=== PATIENT | female | born 1995 | race Two or more races ===

== ENCOUNTER 2023-04-05 14:19 | Emergency (ER) | payer OTHER, SELFPAY ==
[2023-04-05 14:24] VITALS: BP 163/64
[2023-04-05 14:52] LABS: % Basophils 0.2 % (0-2); % Immature Granulocytes 0.4 % (0-0.5); % Neutrophils 84.4 % (42.2-75.2); Absolute Eosinophils 0.2 10^3/uL (0-0.7); Absolute Lymphocytes 0.9 10^3/uL (1.2-3.4); Absolute Monocytes 0.3 10^3/uL (0.1-0.6); Absolute Neutrophils 7.7 10^3/uL (1.4-6.5); Mean Corp Hgb Conc. 33.3 g/dL (33.0-37.0); Mean Corpuscular Hgb 26.7 pg (27.0-31.0); Mean Corpuscular Volume 80.2 fL (81.0-99.0); Mean Platelet Volume 9.6 fL (7.4-10.4); Nucleated Red Blood Cells % 0 %; Platelet Count 316 10^3/uL (130-400); Red Blood Cell Count 4.49 10^6/uL (4.20-5.40); Red Cell Dist. Width 13.1 % (11.5-14.5); White Blood Cell Count 9.1 10^3/uL (4.8-10.8)
[2023-04-05 15:05] LABS: HCG, Serum Qualitative Screen Negative
[2023-04-05 15:09] LABS: ALT (SGPT) 79 U/L (0-35); AST (SGOT) 78 U/L (14-36); Albumin 4.4 g/dl (3.5-5.0); Alkaline Phosphatase 94 U/L (38-126); Blood Urea Nitrogen 14 mg/dl (7-17); Calcium 9.6 mg/dl (8.4-10.2); Carbon Dioxide 27 mmol/L (22-30); Chloride 102 mmol/L (98-107); Glucose 97 mg/dl (70-99); Lipase 40 U/L (23-300); Potassium 4.3 mmol/L (3.5-5.1); Sodium 135 mmol/L (135-145); Total Bilirubin 0.7 mg/dl (0.2-1.3); Total Protein 7.3 g/dl (6.3-8.2); eGFR > 60.00
[2023-04-05 15:17] LABS: Troponin I < 0.012 ng/ml
--- NOTE | 2023-04-05 15:32 | ED.GENMED ---
History of Present Illness
General
Chief Complaint: Abdominal Pain
Time Seen by Provider: 04/05/23 15:32
Travel History
Have you had any contact with someone who has COVID-19?: No
Do you have any symptoms of coronavirus? Fever > 100 degrees, chills, cough, shortness of breath, sore throat, loss of taste or smell, muscle aches, or headache?: No
History of Present Illness
History of Present Illness:
HPI: Last night, the patient had palpitations and took Lopressor. She had some associated nausea and diffuse abdominal pain. The abdominal pain is intermittent but the back pain is constant. She has no dysuria or increased urinary frequency. She
has had no fevers.
EXAM:
GENERAL: Well appearing in very mild distress
HEENT: Moist oral mucosa
CARDIOVASCULAR: No murmurs, normal heart rate and rhythm, No chest wall tenderness, ZIO monitor device noted to send anterior chest wall
PULMONARY: No respiratory distress, breath sounds are clear and equal
ABDOMEN: Soft with no peritoneal signs, mild diffuse tenderness
NEUROLOGIC: Excellent strength all extremities, no coordination deficits
PSYCHIATRIC: Appropriate mental status, normal insight and judgement
EXTREMITIES: Nontender, no edema, moves all extremities equally
SKIN: No rash, no lesions
ED COURSE:
3:45 PM: I initially evaluated patient
NUMBER AND COMPLEXITY OF PROBLEMS ADDRESSED AT THE ENCOUNTER
� Chronic conditions affecting care: SVT
� Acute Exacerbation and/or Progression of Chronic Illness: Acute problem
� Differential Diagnosis includes: Biliary colic, cholecystitis, pancreatitis, ectopic , doubt UTI as she has no urinary symptoms, IBS
AMOUNT AND/OR COMPLEXITY OF DATA TO BE REVIEWED AND ANALYZED
� I performed an independent evaluation of and my interpretation is:
EKG:
CT: CT imaging shows no acute abnormality
X-rays:
Laboratory Studies: CBC relatively unremarkable other than borderline anemia, chemistries unremarkable with exception of slight transaminase elevation, troponin negative, hCG negative, lipase normal
Other:
� Review of other/old records: The patient was here in 2017 with SVT converted with adenosine
� Clinical information was obtained by an independent historian: I spoke to family at bedside
� Prescriptions/Medications Considered but not given:
� Further testing considered but not performed:
RISK OF COMPLICATIONS AND/OR MORBIDITY OR MORTALITY OF PATIENT MANAGEMENT
� Social determinants of health affecting care: Lives at home
� Discussion with other providers:
� Escalation of care including admission/observation vs risk of discharge considered: Blood work is relatively unremarkable but very mild transaminase elevation noted. hCG is negative. She does have diffuse abdominal
tenderness, will obtain CT imaging. After CT imaging was obtained, she felt worse. She was given Pepcid and Benadryl. On reassessment over an hour later, she feels significantly improved. She appears comfortable at time of discharge. Labs are
relatively unremarkable with exception of mild transaminase elevation.
Past History
Past History
ED Past Medical History: Arrthythmia (SVT), Other (Palpitations, irregular menses), Other (Anemia) and Other (Migraine headaches.)
ED Past Surgical History: Cardiac (SVT ablation 2018)
Social History
Tobacco: Non-smoker
Alcohol: None
Drug: None
Personal: Single
Living: with family
Employment: Student
Family History
Family History: Other (Noncontributory)
Phy Exam
Physical Exam
Physical Exam:
See HPI
Course
Orders/Labs/Results
Orders:
Orders
04/05/23 14:28
ECG [Electrocardiogram (*1)] Urgent
Reason for Study: Palpitations
EKG- Treatment ONCE
04/05/23 14:29
Test Result ONCE
04/05/23 14:36
Complete Blood Count/With Diff Urgent
Comprehensive Metabolic Panel Urgent
HCG, Serum Qualitative Screen Urgent
Lipase Urgent
Troponin I Urgent
04/05/23 15:48
0.9% Sodium Chloride 1000 ml [Nss] 1,000 ml IV BOLUS
Ondansetron Injectable [Zofran] 4 mg IV NOW STA
04/05/23 15:50
CT Abd/pelvis W Iv Cont Urgent
Comment:
Reason For Exam: diffuse abd pain back pain nausea
Ketorolac [Toradol] 15 mg IV NOW STA
04/05/23 17:23
Diphenhydramine [Benadryl] 25 mg IV NOW STA
Famotidine [Pepcid] 20 mg IV NOW STA
Abnormal Lab Results
04/05/23
14:36
Hct 36.0 L %
(37.0-47.0)
MCV 80.2 L fL
(81.0-99.0)
MCH 26.7 L pg
(27.0-31.0)
Absolute Neuts (auto) 7.7 H 10^3/uL
(1.4-6.5)
Absolute Lymphs (auto) 0.9 L 10^3/uL
(1.2-3.4)
Neutrophils % 84.4 H %
(42.2-75.2)
Lymphocytes % 10.0 L %
(20.5-51.1)
AST 78 H U/L
(14-36)
ALT 79 H U/L
(0-35)
04/05/23 14:36
04/05/23 14:36
Vital Signs
Initial and Last Documented VS:
Initial Vital Signs
Temp Pulse Resp BP Pulse Ox
98.1 F 87 18 163/64 100
04/05/23 14:24 04/05/23 14:24 04/05/23 14:24 04/05/23 14:24 04/05/23 14:24
Last Documented Vital Signs
Temp Pulse Resp BP Pulse Ox
98.1 F 104 25 107/92 100
04/05/23 14:24 04/05/23 19:00 04/05/23 19:00 04/05/23 19:00 04/05/23 17:20
*Critical Care Note
Total Time (30-74mins, 75-104mins- exclusive of procedures): Not Applicable
ED Attending Note
-
Portions of this chart may have been created with voice recognition software.� Occasional wrong word or��sound alike� substitutions may have occurred due to the inherent limitations of voice recognition software.
Discharge Plan
Departure
Patient Disposition: Home (Routine Discharge)
Date of Disposition: 04/05/23
Time of Disposition: 19:12
Patient with high blood pressure during this ER visit?: Yes
Discharge Problem:
Abdominal pain
Instructions: Abdominal Pain
Prescriptions:
No Action
atenolol 25 MG tablet
25 mg PO DAILY
Patient Comments:
Pt to start taking tomorrow per father.
levonorgestrel-ethinyl estrad [Chateal (28)] 1 EACH tablet
1 ea PO DAILY
ibuprofen 600 MG tablet
600 mg PO QIDPRN PRN (Reason: pain) Qty: 30 0RF
prochlorperazine maleate 10 MG tablet
10 mg PO Q6HPRN PRN (Reason: headache, nausea) Qty: 14 0RF
Referrals:
NONE,* [Family Provider] -
Melissa Baltazar MD [Active] - Follow up in 2-3 days
Activity Restrictions/Additional Instructions:
Continue Nexium. Consider intermittent use of ibuprofen. We did give you Pepcid as well as Benadryl tonight after the CAT scan. The EKG showed sinus rhythm, ventricular rate of 88, nonspecific ST abnormality, there is no significant change in
comparison to 08/12/2017. I did notify GI and they should be calling you for follow-up.
Interventions
Interventions:
*Risk Screen - Suicide Last Done: 04/05/23 14:24
*General Assessment Last Done: 04/05/23 14:24
*Neglect/Abuse Screening Last Done: 04/05/23 14:24
*ED COVID-19 Vaccine History Last Done: 04/05/23 16:44
[facility]odfc[facility]ug[facility] Assessment Last Done: 04/05/23 19:12
[2023-04-05] MEDS: NSS 1000 IV (16:37)
[2023-04-05] MEDS: ZOFRAN 4 MG IV (16:38)
[2023-04-05] MEDS: TORADOL 15 MG IV (16:38)
[2023-04-05 16:43] VITALS: BMI 30.7
[2023-04-05] MEDS: BENADRYL 25 MG IV (17:32)
[2023-04-05] MEDS: PEPCID 20 MG IV (17:32)
[2023-04-05 18:00] VITALS: BP 107/66
[2023-04-05 19:00] VITALS: BP 107/92
== END 2023-04-05 19:49 | disposition home or self-care (01) ==
LOC: EMR 14:19
PROVIDERS: Emergency Medicine; EMERGENCY PHYSICIAN Emergency Medicine
DX: R10.9 Unspecified abdominal pain (principal); R11.0 Nausea; R00.2 Palpitations
CPT/HCPCS: 99284; 74177; 80053; 83690; 84484; 84703; 85025; 93005; Q9967

== ENCOUNTER 2024-01-06 22:18 | Emergency (ER) | payer OTHER, SELFPAY ==
[2024-01-06 22:27] VITALS: BP 171/126
[2024-01-07 00:05] LABS: % Basophils 0.4 % (0-2); % Eosinophils 2.1 % (0-6); % Immature Granulocytes 0.8 % (0-0.5); % Lymphocytes 21.1 % (20.5-51.1); % Monocytes 4.4 % (1.7-9.3); % Neutrophils 71.2 % (42.2-75.2); Absolute Basophils 0.1 10^3/uL (0-0.2); Absolute Eosinophils 0.3 10^3/uL (0-0.7); Absolute Immature Granulocytes 0.1 10^3/uL (0-0.05); Absolute Lymphocytes 2.8 10^3/uL (1.2-3.4); Absolute Monocytes 0.6 10^3/uL (0.1-0.6); Absolute Neutrophils 9.3 10^3/uL (1.4-6.5); Hematocrit 31.5 % (37.0-47.0); Hemoglobin 9.8 g/dL (12.0-16.0); Mean Corp Hgb Conc. 31.1 g/dL (33.0-37.0); Mean Corpuscular Hgb 24.5 pg (27.0-31.0); Mean Corpuscular Volume 78.8 fL (81.0-99.0); Mean Platelet Volume 9.6 fL (7.4-10.4); Nucleated Red Blood Cells % 0 %; Platelet Count 340 10^3/uL (130-400); Red Cell Dist. Width 14.2 % (11.5-14.5); White Blood Cell Count 13.1 10^3/uL (4.8-10.8)
[2024-01-07] MEDS: NSS 1000 IV (00:05)
[2024-01-07 00:08] VITALS: BP 126/71
[2024-01-07 00:22] LABS: Blood Urea Nitrogen 15 mg/dl (7-17); Calcium 9.1 mg/dl (8.4-10.2); Carbon Dioxide 22 mmol/L (22-30); Chloride 102 mmol/L (98-107); Glucose 110 mg/dl (70-99); Sodium 138 mmol/L (135-145); eGFR > 60.00
[2024-01-07 00:28] LABS: Troponin I < 0.012 ng/ml
[2024-01-07 00:30] VITALS: BP 131/76
--- NOTE | 2024-01-07 00:30 | ED.GENMED ---
History of Present Illness
<Lionel Laura MD - Last Filed: 01/07/24 00:32>
General
Chief Complaint: Heart Rate Problem
Source: patient and spouse
Exam Limitations: none
Time Seen by Provider: 01/06/24 22:54
History of Present Illness
History of Present Illness:
28-year-old female complaining of heart racing. Pounding. Started yesterday. History of SVT and inappropriate sinus tachycardia. At times runs heart rate in the low 100s. Heart rate went up to 190 earlier yesterday. Some intermittent sharp
chest pain with this. No true pleuritic pain. No back pain no abdominal pain no vaginal bleeding. Patient is 5-1/2 weeks .
Past History
<Lionel Laura MD - Last Filed: 01/07/24 00:32>
Past History
ED Past Medical History: Arrthythmia (SVT), Other (Palpitations, irregular menses), Other (Anemia) and Other (Migraine headaches.)
ED Past Surgical History: Cardiac (SVT ablation 2018)
Social History
Tobacco: Non-smoker
Alcohol: None
Drug: None
Personal: Single
Living: with family
Employment: Student
Family History
Family History: Other (Noncontributory)
Review of Systems
<Lionel Laura MD - Last Filed: 01/07/24 00:32>
Review of Systems
All Other Systems: Not applicable
Constitutional: Denies fever or chills
ABD/GI: Denies abdominal pain
Phy Exam
<Lionel Laura MD - Last Filed: 01/07/24 00:32>
Physical Exam
Physical Exam:
GENERAL: Alert and oriented in no apparent distress
EYE: Orbits normal.
NECK: Supple, no thyroid palpable
ENT: Pharynx without erythema
CARDIAC: Tachycardic and regular no murmur.
LUNGS: Clear breath sounds,normal
ABDOMEN: Soft, without focal tenderness or distention
NEUROLOGICAL: Alert and oriented , grossly non-focal
SKIN: Warm and dry, no rash or lesion, no discoloration, skin intact.
MUSCULOSKELETAL: No edema,no deformity.Good color
PSYCH: Normal and appropriate interaction.
Course
<Lionel Laura MD - Last Filed: 01/07/24 00:32>
Orders/Labs/Results
Orders:
Orders
01/06/24 22:19
EKG [Electrocardiogram (*1)] Urgent
Reason for Study: Chest Pain
EKG- Treatment ONCE
01/06/24 23:15
IV Insert/Care/Rem.- Treatment PRN
0.9% Sodium Chloride 1000 ml [Nss] 1,000 ml IV BOLUS
01/06/24 23:17
Cardiac Monitoring- Treatment ONCE
01/06/24 23:53
Basic Metabolic Panel Urgent
Beta HCG Quantitative Urgent
Is this a screen?: No
Complete Blood Count/With Diff Urgent
TSH Reflex To Free T4 Urgent
Troponin I Urgent
01/07/24 00:00
US Periph Venous LOWER Ext Harish Urgent
Reason For Exam: /tachycardia/chest pain
US W Transvaginal Urgent
Reason For Exam: Tachycardia/lower abdominal pain
01/07/24 00:32
D-Dimer Urgent
Abnormal Lab Results
01/06/24
23:53
WBC 13.1 H 10^3/uL
(4.8-10.8)
RBC 4.00 L 10^6/uL
(4.20-5.40)
Hgb 9.8 L g/dL
(12.0-16.0)
Hct 31.5 L %
(37.0-47.0)
MCV 78.8 L fL
(81.0-99.0)
MCH 24.5 L pg
(27.0-31.0)
MCHC 31.1 L g/dL
(33.0-37.0)
Abs Immat Gran (auto) 0.1 H 10^3/uL
(0-0.05)
Absolute Neuts (auto) 9.3 H 10^3/uL
(1.4-6.5)
Immature Gran % 0.8 H %
(0-0.5)
Glucose 110 H mg/dl
(70-99)
01/06/24 23:53
01/06/24 23:53
Vital Signs
Initial and Last Documented VS:
Initial Vital Signs
Temp Pulse Resp BP Pulse Ox
98.2 F 130 16 171/126 98
01/06/24 22:27 01/06/24 22:27 01/06/24 22:27 01/06/24 22:27 01/06/24 22:27
Last Documented Vital Signs
Temp Pulse Resp BP Pulse Ox
98.2 F 101 24 122/72 100
01/06/24 22:27 01/07/24 01:30 01/07/24 01:30 01/07/24 01:30 01/07/24 01:30
<Nimisha Desai DO - Last Filed: 01/07/24 04:29>
Orders/Labs/Results
Orders:
Orders
01/06/24 22:19
EKG [Electrocardiogram (*1)] Urgent
Reason for Study: Chest Pain
EKG- Treatment ONCE
01/06/24 23:15
IV Insert/Care/Rem.- Treatment PRN
0.9% Sodium Chloride 1000 ml [Nss] 1,000 ml IV BOLUS
01/06/24 23:17
Cardiac Monitoring- Treatment ONCE
01/06/24 23:53
Basic Metabolic Panel Urgent
Beta HCG Quantitative Urgent
Is this a screen?: No
Complete Blood Count/With Diff Urgent
TSH Reflex To Free T4 Urgent
Troponin I Urgent
01/07/24 00:00
US Periph Venous LOWER Ext Harish Urgent
Reason For Exam: /tachycardia/chest pain
US W Transvaginal Urgent
Reason For Exam: Tachycardia/lower abdominal pain
01/07/24 00:32
D-Dimer Urgent
Abnormal Lab Results
01/06/24
23:53
WBC 13.1 H 10^3/uL
(4.8-10.8)
RBC 4.00 L 10^6/uL
(4.20-5.40)
Hgb 9.8 L g/dL
(12.0-16.0)
Hct 31.5 L %
(37.0-47.0)
MCV 78.8 L fL
(81.0-99.0)
MCH 24.5 L pg
(27.0-31.0)
MCHC 31.1 L g/dL
(33.0-37.0)
Abs Immat Gran (auto) 0.1 H 10^3/uL
(0-0.05)
Absolute Neuts (auto) 9.3 H 10^3/uL
(1.4-6.5)
Immature Gran % 0.8 H %
(0-0.5)
Glucose 110 H mg/dl
(70-99)
01/06/24 23:53
01/06/24 23:53
Vital Signs
Initial and Last Documented VS:
Initial Vital Signs
Temp Pulse Resp BP Pulse Ox
98.2 F 130 16 171/126 98
01/06/24 22:27 01/06/24 22:27 01/06/24 22:27 01/06/24 22:27 01/06/24 22:27
Last Documented Vital Signs
Temp Pulse Resp BP Pulse Ox
98.2 F 101 24 122/72 100
01/06/24 22:27 01/07/24 01:30 01/07/24 01:30 01/07/24 01:30 01/07/24 01:30
<Lionel Laura MD - Last Filed: 01/07/24 00:32>
MDM/Problems Addressed
Differential Diagnosis Includes:
Most suspicious this is just a response to her inappropriate sinus tachycardia. Patient is 5 and half weeks . She has no leg pain no leg no leg swelling. Relatively low risk for pulmonary emboli given the early . Has a history
of tachycardic issues in the past. Will do leg ultrasounds ultrasound of the fetus D-dimer.
<Lionel Laura MD - Last Filed: 01/07/24 00:32>
Data Reviewed
Review of Other/Old Records Reveals: Labs and Testing
<Nimisha Desai DO - Last Filed: 01/07/24 04:29>
*Radiology
Radiology exam reviewed: radiology read reviewed
*Pulse Oximetry
Patient hypoxic: no
*Critical Care Note
Total Time (30-74mins, 75-104mins- exclusive of procedures): Not Applicable
<Nimisha Desai DO - Last Filed: 01/07/24 04:29>
Update Note
Update Note:
Patient continues to feel well. No further tachycardia.
She remains hemodynamically stable.
Continues to deny abdominal pain.
Venous Doppler bilateral lower extremities negative for DVT.
Pelvic ultrasound shows small cystic structure within the endometrium which may represent early IUP but no definitive pole. hCG is quite low at 1800, consistent with a very early . It is reassuring that she has had no abdominal
pain, nothing to suggest ectopic .
Labs show mild anemia with hemoglobin of 9.8. Patient has history of iron deficiency anemia, currently maintained on oral iron.
She does have a tack maker and plans to follow-up promptly.
Will also follow-up with her tomato paste maker, Dr. Rock.
ED Attending Note
<Lionel Laura MD - Last Filed: 01/07/24 00:32>
-
Portions of this chart may have been created with voice recognition software.� Occasional wrong word or��sound alike� substitutions may have occurred due to the inherent limitations of voice recognition software.
Discharge Plan
Departure
Patient Disposition: Home (Routine Discharge)
Date of Disposition: 01/07/24
Time of Disposition: 04:23
Patient with high blood pressure during this ER visit?: No
Condition: Good
Discharge Problem:
Tachycardia/chest pain, Early
Instructions: Tachycardia, Chest pain
Prescriptions:
No Action
atenolol 25 MG tablet
25 mg PO DAILY
Patient Comments:
Pt to start taking tomorrow per father.
levonorgestrel-ethinyl estrad [Chateal (28)] 1 EACH tablet
1 ea PO DAILY
ibuprofen 600 MG tablet
600 mg PO QIDPRN PRN (Reason: pain) Qty: 30 0RF
prochlorperazine maleate 10 MG tablet
10 mg PO Q6HPRN PRN (Reason: headache, nausea) Qty: 14 0RF
Referrals:
NONE,* [Family Provider] -
Activity Restrictions/Additional Instructions:
Call your tomato paste maker tomorrow for close follow-up
Also call your glass loading equipment tender for close follow-up
Return with worsening symptoms including worsening chest pain shortness of breath fever cough or any other infectious symptoms
Interventions
Interventions:
*Risk Screen - Suicide Last Done: 01/06/24 22:27
*General Assessment Last Done: 01/06/24 22:27
*Neglect/Abuse Screening Last Done: 01/06/24 22:27
ED- Fall Risk Assessment Last Done: 01/06/24 23:22
*ED COVID-19 Vaccine History Last Done: 01/06/24 22:27
ED- Cardiac Assessment Last Done: 01/06/24 23:22
ED- Pulmonary Assessment Last Done: 01/06/24 23:22
Discharge Date and Time
Print Language: WELSH
[2024-01-07 00:46] VITALS: BMI 33.2
[2024-01-07 00:48] LABS: TSH Reflex To Free T4 2.89 uIU/ml (0.47-4.68)
[2024-01-07 00:55] LABS: D-Dimer 0.32 ug/mlFEU (0.00-0.50)
[2024-01-07 01:00] VITALS: BP 125/68
[2024-01-07 01:30] VITALS: BP 122/72
== END 2024-01-07 04:42 | disposition home or self-care (01) ==
LOC: EMR 22:18
PROVIDERS: EMERGENCY PHYSICIAN Emergency Medicine
DX: O99.891 Other specified diseases and conditions complicating pregnancy (principal); R00.0 Tachycardia, unspecified; R07.89 Other chest pain; Z3A.01 Less than 8 weeks gestation of pregnancy; Z86.79 Personal history of other diseases of the circulatory system
CPT/HCPCS: 99283; 96360; 96361; 76801; 76817; 80048; 84443; 84484; 84702; 85025; 85379; 93005; 93970

== ENCOUNTER 2024-01-26 17:14 | Emergency (ER) | payer BC, SELFPAY ==
[2024-01-26 17:16] VITALS: BP 124/81
[2024-01-26 17:44] LABS: % Basophils 0.3 % (0-2); % Eosinophils 2.1 % (0-6); % Immature Granulocytes 0.6 % (0-0.5); % Lymphocytes 18.7 % (20.5-51.1); % Monocytes 4.5 % (1.7-9.3); % Neutrophils 73.8 % (42.2-75.2); Absolute Eosinophils 0.2 10^3/uL (0-0.7); Absolute Immature Granulocytes 0.1 10^3/uL (0-0.05); Absolute Lymphocytes 2.1 10^3/uL (1.2-3.4); Absolute Monocytes 0.5 10^3/uL (0.1-0.6); Absolute Neutrophils 8.4 10^3/uL (1.4-6.5); Hematocrit 34.6 % (37.0-47.0); Mean Corp Hgb Conc. 31.8 g/dL (33.0-37.0); Mean Corpuscular Hgb 25.2 pg (27.0-31.0); Mean Corpuscular Volume 79.4 fL (81.0-99.0); Mean Platelet Volume 9.7 fL (7.4-10.4); Nucleated Red Blood Cells % 0 %; Platelet Count 333 10^3/uL (130-400); Red Blood Cell Count 4.36 10^6/uL (4.20-5.40); Red Cell Dist. Width 15.3 % (11.5-14.5); White Blood Cell Count 11.3 10^3/uL (4.8-10.8)
[2024-01-26 18:01] LABS: ALT (SGPT) 18 U/L (0-35); AST (SGOT) 19 U/L (14-36); Albumin 4.3 g/dl (3.5-5.0); Alkaline Phosphatase 81 U/L (38-126); Calcium 9.5 mg/dl (8.4-10.2); Carbon Dioxide 24 mmol/L (22-30); Chloride 102 mmol/L (98-107); Glucose 110 mg/dl (70-99); Potassium 4.4 mmol/L (3.5-5.1); Sodium 136 mmol/L (135-145); Total Bilirubin 0.3 mg/dl (0.2-1.3); eGFR > 60.00
--- NOTE | 2024-01-26 18:06 | ED.GENMED ---
History of Present Illness
<Cuauhtemoc Gill PA-C - Last Filed: 01/26/24 18:07>
General
Chief Complaint: Problems
Time Seen by Provider: 01/26/24 17:32
History of Present Illness
History of Present Illness:
28-year-old female presents to the emergency department for evaluation of vaginal bleeding. currently about 8 weeks gestational age. Reports feeling 1 pad for bleeding gradually improved. Only trivial bleeding noted at this time. No
history of bleeding disorder. Does report pelvic cramping currently as well.
<Chandler Craig Jr., PA-C - Last Filed: 01/26/24 19:34>
General
Source: patient
Exam Limitations: none
Nursing documentation reviewed up to this point in time: agreed with
Past History
<Cuauhtemoc Gill PA-C - Last Filed: 01/26/24 18:07>
Past History
ED Past Medical History: Arrthythmia (SVT), Other (Palpitations, irregular menses), Other (Anemia) and Other (Migraine headaches.)
ED Past Surgical History: Cardiac (SVT ablation 2018)
Social History
Tobacco: Non-smoker
Alcohol: None
Drug: None
Personal: Single
Living: with family
Employment: Student
Family History
Family History: Other (Noncontributory)
Review of Systems
<Cuauhtemoc Gill PA-C - Last Filed: 01/26/24 18:07>
Review of Systems
Allergies reviewed?: Yes
All Other Systems: ROS reviewed and negative except as documented in HPI and ROS
Phy Exam
<KAROLYN Blackman Last Filed: 01/26/24 18:07>
Physical Exam
Physical Exam:
GEN: Well appearing, NAD, WDWN
HEENT: Oral mucosa moist, no scleral icterus
Cardiac: Regular rate
Lung: No respiratory distress, no tachypnea
MSK: No gross deformity or injuries
Skin: Good color, no pallor or jaundice, no rashes
Neuro: AO x3, moves all extremities freely
Psych: Calm, cooperative
Course
<Cuauhtemoc Gill PA-C - Last Filed: 01/26/24 18:07>
Orders/Labs/Results
Orders:
Orders
01/26/24 17:25
US W Transvaginal Urgent
Comment:
Reason For Exam: 1st trimester bleeding
01/26/24 17:29
Type And Crossmatch [Type+Screen] Urgent
Beta HCG Quantitative Urgent
Is this a screen?: No
Comment: patient known to be
Complete Blood Count/With Diff Urgent
Comprehensive Metabolic Panel Urgent
01/26/24 17:54
ABO2 Urgent
BBK Wristband Number:
Associate notified that ABO2 has been ordered: [id number]
Date: 01/26/24
Time: 17:50
Shuttle [address] Vehicle Operator ID: [id number]
Abnormal Lab Results
01/26/24
17:29
WBC 11.3 H 10^3/uL
(4.8-10.8)
Hgb 11.0 L g/dL
(12.0-16.0)
Hct 34.6 L %
(37.0-47.0)
MCV 79.4 L fL
(81.0-99.0)
MCH 25.2 L pg
(27.0-31.0)
MCHC 31.8 L g/dL
(33.0-37.0)
RDW 15.3 H %
(11.5-14.5)
Abs Immat Gran (auto) 0.1 H 10^3/uL
(0-0.05)
Absolute Neuts (auto) 8.4 H 10^3/uL
(1.4-6.5)
Immature Gran % 0.6 H %
(0-0.5)
Lymphocytes % 18.7 L %
(20.5-51.1)
Glucose 110 H mg/dl
(70-99)
01/26/24 17:29
01/26/24 17:29
Vital Signs
Initial and Last Documented VS:
Initial Vital Signs
Temp Pulse Resp BP Pulse Ox
98.6 F 98 18 124/81 100
01/26/24 17:16 01/26/24 17:16 01/26/24 17:16 01/26/24 17:16 01/26/24 17:16
Last Documented Vital Signs
Temp Pulse Resp BP Pulse Ox
98.6 F 98 18 124/81 100
01/26/24 17:16 01/26/24 17:16 01/26/24 17:16 01/26/24 17:16 01/26/24 17:16
<Chandler Craig Jr., PA-C - Last Filed: 01/26/24 19:34>
Orders/Labs/Results
Orders:
Orders
01/26/24 17:25
US W Transvaginal Urgent
Comment:
Reason For Exam: 1st trimester bleeding
01/26/24 17:29
Type And Crossmatch [Type+Screen] Urgent
Beta HCG Quantitative Urgent
Is this a screen?: No
Comment: patient known to be
Complete Blood Count/With Diff Urgent
Comprehensive Metabolic Panel Urgent
01/26/24 17:54
ABO2 Urgent
BBK Wristband Number:
Associate notified that ABO2 has been ordered: [id number]
Date: 01/26/24
Time: 17:50
Shuttle [address] Vehicle Operator ID: [id number]
Abnormal Lab Results
01/26/24
17:29
WBC 11.3 H 10^3/uL
(4.8-10.8)
Hgb 11.0 L g/dL
(12.0-16.0)
Hct 34.6 L %
(37.0-47.0)
MCV 79.4 L fL
(81.0-99.0)
MCH 25.2 L pg
(27.0-31.0)
MCHC 31.8 L g/dL
(33.0-37.0)
RDW 15.3 H %
(11.5-14.5)
Abs Immat Gran (auto) 0.1 H 10^3/uL
(0-0.05)
Absolute Neuts (auto) 8.4 H 10^3/uL
(1.4-6.5)
Immature Gran % 0.6 H %
(0-0.5)
Lymphocytes % 18.7 L %
(20.5-51.1)
Glucose 110 H mg/dl
(70-99)
01/26/24 17:29
01/26/24 17:29
Vital Signs
Initial and Last Documented VS:
Initial Vital Signs
Temp Pulse Resp BP Pulse Ox
98.6 F 98 18 124/81 100
01/26/24 17:16 01/26/24 17:16 01/26/24 17:16 01/26/24 17:16 01/26/24 17:16
Last Documented Vital Signs
Temp Pulse Resp BP Pulse Ox
98.6 F 98 18 124/81 100
01/26/24 17:16 01/26/24 17:16 01/26/24 17:16 01/26/24 17:16 01/26/24 17:16
Information
Weeks gestation: Weeks:
Location: Location:
<Chandler Craig Jr., PA-C - Last Filed: 01/26/24 19:34>
*Critical Care Note
Total Time (30-74mins, 75-104mins- exclusive of procedures): Not Applicable
<Chandler Craig Jr., PA-C - Last Filed: 01/26/24 19:34>
Update Note
Update Note:
1915: Ed Rafa PARR patient's ultrasound results showing intrauterine showing small subchorionic hemorrhage. This was discussed with the patient she will follow-up closely tomorrow with her machine fastener. Otherwise stable for discharge
return precautions given.
ED Attending Note
<Cuauhtemoc Gill PA-C - Last Filed: 01/26/24 18:07>
-
Portions of this chart may have been created with voice recognition software.� Occasional wrong word or��sound alike� substitutions may have occurred due to the inherent limitations of voice recognition software.
Discharge Plan
Departure
Patient Disposition: Home (Routine Discharge)
Date of Disposition: 01/26/24
Time of Disposition: 19:32
Patient with high blood pressure during this ER visit?: No
Condition: Good
Covid-19: Not Applicable
Discharge Problem:
Subchorionic hemorrhage in first trimester
Instructions: Subchorionic Bleeding
Prescriptions:
No Action
atenolol 25 MG tablet
25 mg PO DAILY
Patient Comments:
Pt to start taking tomorrow per father.
levonorgestrel-ethinyl estrad [Chateal (28)] 1 EACH tablet
1 ea PO DAILY
ibuprofen 600 MG tablet
600 mg PO QIDPRN PRN (Reason: pain) Qty: 30 0RF
prochlorperazine maleate 10 MG tablet
10 mg PO Q6HPRN PRN (Reason: headache, nausea) Qty: 14 0RF
Referrals:
NONE,* [Family Provider] -
Activity Restrictions/Additional Instructions:
You came to the emergency department today with concerns of bleeding in first trimester. Please follow closely with your machine fastener tomorrow. It appears that you have a subchorionic hemorrhage. Please follow all directions in this regard.
Return to the emergency department any worsening, new or concerning symptoms.
Interventions
Interventions:
*Risk Screen - Suicide Last Done: 01/26/24 17:16
*General Assessment Last Done: 01/26/24 17:16
*Neglect/Abuse Screening Last Done: 01/26/24 17:16
*ED COVID-19 Vaccine History Last Done: 01/26/24 17:16
ED-Female Genitourinary Assessment Last Done: 01/26/24 17:50
Discharge Date and Time
Print Language: DJIBOUTIAN
[2024-01-26 18:09] LABS: Blood Urea Nitrogen 11 mg/dl (7-17)
[2024-01-26 19:44] VITALS: BP 116/78
== END 2024-01-26 19:47 | disposition home or self-care (01) ==
LOC: EMR 17:14
PROVIDERS: EMERGENCY PHYSICIAN Emergency Medicine
DX: O20.8 Other hemorrhage in early pregnancy (principal); Z3A.08 8 weeks gestation of pregnancy
CPT/HCPCS: 99284; 76801; 76817; 80053; 84702; 85025; 86850; 86870; 86900; 86901

== ENCOUNTER → 2024-03-31 08:09 | Outpatient (REF) | payer BC, SELFPAY | LOC: PNTC 08:09 | PROVIDERS: ATTENDING PHYSICIAN Obstetrics & Gynecology | DX: O10.019 Pre-existing essential hypertension complicating pregnancy, unspecified trimester (principal); I47.19 Other supraventricular tachycardia | CPT/HCPCS: 76805 ==

== ENCOUNTER → 2024-04-28 13:21 | Outpatient (REF) | payer BC, SELFPAY | LOC: PNTC 13:21 | PROVIDERS: ATTENDING PHYSICIAN Obstetrics & Gynecology | DX: I47.10 Supraventricular tachycardia, unspecified (principal); O99.210 Obesity complicating pregnancy, unspecified trimester; O13.9 Gestational [pregnancy-induced] hypertension without significant proteinuria, unspecified trimester | CPT/HCPCS: 76811; 76817 ==

== ENCOUNTER → 2024-05-23 13:15 | Outpatient (REF) | payer BC, SELFPAY | LOC: PNTC 13:15 | PROVIDERS: ATTENDING PHYSICIAN Obstetrics & Gynecology | DX: O99.320 Drug use complicating pregnancy, unspecified trimester (principal); E28.2 Polycystic ovarian syndrome; O99.210 Obesity complicating pregnancy, unspecified trimester; O10.019 Pre-existing essential hypertension complicating pregnancy, unspecified trimester | CPT/HCPCS: 76816 ==

== ENCOUNTER 2024-06-05 18:29 | Observation (INO) | payer BC, SELFPAY ==
[2024-06-05 14:54] VITALS: BMI 34.5
[2024-06-05 14:58] VITALS: BP 145/96
--- NOTE | 2024-06-05 15:20 | ED.GENMED ---
History of Present Illness
General
Chief Complaint: Problems
Source: patient and spouse
Exam Limitations: none
Time Seen by Provider: 06/05/24 15:20
Nursing documentation reviewed up to this point in time: agreed with
History of Present Illness
History of Present Illness:
28-year-old female presents emergency room due to right aggressive abdominal pain rating to her back, shortness of breath for a week. OB was contacted, who requested BP checked and a call back. Patient denies chest pain.
Past History
Past History
ED Past Medical History: Arrthythmia (SVT), Other (Palpitations, irregular menses), Other (Anemia) and Other (Migraine headaches.)
ED Past Surgical History: Cardiac (SVT ablation 2018)
Social History
Tobacco: Non-smoker
Alcohol: None
Drug: None
Personal: Single
Living: with family
Employment: Student
Family History
Family History: Other (Noncontributory)
Review of Systems
Review of Systems
Allergies reviewed?: Yes
All Other Systems: Not applicable
Constitutional: Reports no symptoms
EENT: Reports no symptoms
Respiratory: Reports no symptoms
Cardiac: Reports no symptoms
ABD/GI: Reports abdominal pain
: Reports no symptoms
Musculoskeletal: Reports no symptoms
Skin: Reports no symptoms
Neurological: Reports no symptoms
Endocrine: Reports no symptoms
Hematologic/Lymphatic: Reports no symptoms
Psychiatric: Reports no symptoms
Phy Exam
Physical Exam
Physical Exam:
Physical Exam
General: no apparent distress, not acutely ill
Neck: supple. no meningeal signs. normal posterior pharynx
Heart: s1/s2 regular rate and rhythm, no murmur. equal radial
pulses.
HEENT: Pupils equal round reactive to light, EOMI
Lungs: no acute respiratory distress. clear bilaterally
Abdomen: normal bowel sounds. not tender. no CVAT
Neuro: alert and oriented. no focal neurological deficits cranial nerves II through XII intact
Skin: no rash
Psychiatric: well kept. interactive and cooperative
Extremities: no edema. no calf tenderness. negative homans. good distal pulses
Course
Orders/Labs/Results
Orders:
Orders
06/05/24 14:59
ECG [Electrocardiogram (*1)] Urgent
Reason for Study: Shortness of Breath
EKG- Treatment ONCE
06/05/24 15:35
IV Insert/Care/Rem.- Treatment PRN
US Abdomen Complete/Upper Urgent
Comment:
Reason For Exam: epigastric pain 1 week
06/05/24 15:45
Complete Blood Count/With Diff Urgent
Comprehensive Metabolic Panel Urgent
D-Dimer Urgent
Lipase Urgent
Protein/Creat Ratio (Random) Urgent
Date Specimen was Collected: 06/05/24
Time Specimen was Collected: 15:37
Comment: ADD ON
Troponin I Urgent
Urinalysis Reflex To Culture Urgent
Date Specimen was Collected: 06/05/24
Time Specimen was Collected: 15:37
Urine Microscopic Reflex Cult Urgent
Urine Culture Urgent
YOLANDA Source: U
Specimen Description:
Date Specimen was Collected: 06/05/24
Time Specimen was Collected: 15:37
Abnormal Lab Results
06/05/24
15:45
WBC 14.7 H 10^3/uL
(4.8-10.8)
RBC 3.91 L 10^6/uL
(4.20-5.40)
Hgb 10.3 L g/dL
(12.0-16.0)
Hct 31.3 L %
(37.0-47.0)
MCV 80.1 L fL
(81.0-99.0)
MCH 26.3 L pg
(27.0-31.0)
MCHC 32.9 L g/dL
(33.0-37.0)
RDW 16.1 H %
(11.5-14.5)
Abs Immat Gran (auto) 0.4 H 10^3/uL
(0-0.05)
Absolute Neuts (auto) 11.2 H 10^3/uL
(1.4-6.5)
Absolute Monos (auto) 0.7 H 10^3/uL
(0.1-0.6)
Immature Gran % 2.6 H %
(0-0.5)
Neutrophils % 76.0 H %
(42.2-75.2)
Lymphocytes % 15.2 L %
(20.5-51.1)
D-Dimer 0.60 H ug/mlFEU
(0.00-0.50)
Creatinine 0.5 L mg/dL
(0.6-1.0)
Ur Occult Blood Reflex 2+ A
(Negative)
Leukocyte Esterase Rfl 2+ A
(Negative)
Urine WBC (Reflex) 11-15 A /HPF
(0-5)
Urine Bacteria (Reflex) Few A
(Negative)
06/05/24 15:45
06/05/24 15:45
Vital Signs
Initial and Last Documented VS:
Initial Vital Signs
Temp Pulse Resp BP Pulse Ox
98.5 F 110 20 145/96 99
06/05/24 14:58 06/05/24 14:58 06/05/24 14:58 06/05/24 14:58 06/05/24 14:58
Last Documented Vital Signs
Temp Pulse Resp BP Pulse Ox
98.8 F 86 18 120/76 98
06/05/24 18:36 06/05/24 18:36 06/05/24 18:36 06/05/24 18:36 06/05/24 18:00
Information
Weeks gestation: Weeks: (27)
Location: Location: (Intrauterine)
MDM/Problems Addressed
Differential Diagnosis Includes:
Cholecystitis, pancreatitis, PE
MDM/Problems Addressed:
28-year-old female with right upper quadrant abdominal pain and flank pain. D-dimer borderline, doubt PE. Patient comfortable. Will transfer to L&D for further monitoring. Blood pressure also improved.
*Radiology
Radiology exam reviewed: radiology read reviewed (Ultrasound abdomen no acute findings)
*Pulse Oximetry
Patient hypoxic: no
*EKG
Interpreted by ED Provider?: Yes
EKG Intrepretation Date: 06/05/24
EKG Intrepretation Time: 15:04
Interpretation: normal
Comparison EKG: no changes
Heart Rate: 91
Rate: normal
Rhythm: sinus
[place]: normal axis
Interval: normal interval
QRS Pattern: normal QRS
Ischemia: non-specific ST changes
*Journeyman Machinist Interpretation
Rate: normal
Interpretation: normal
Heart Rate: 88
Rhythm: sinus
*Critical Care Note
Total Time (30-74mins, 75-104mins- exclusive of procedures): Not Applicable
Patient Management
Social determinants of health affecting care: Living situation
Discussion with other providers: Air Traffic Controller (SPEEDER FRAME TENDER)
Escalation/DeEscalation of care consider admission/obs:
Further monitoring in labor and delivery indicated
ED Attending Note
-
Portions of this chart may have been created with voice recognition software.� Occasional wrong word or��sound alike� substitutions may have occurred due to the inherent limitations of voice recognition software.
Discharge Plan
Departure
Patient Disposition: LDRP
Date of Disposition: 06/05/24
Time of Disposition: 17:50
Presentation/result/management discussed w/ accepting MD/DO: Thierry
Patient with high blood pressure during this ER visit?: Yes
Condition: Good
Discharge Problem:
Abdominal pain affecting
Interventions
Interventions:
*Risk Screen - Suicide Last Done: 06/05/24 15:18
*General Assessment Last Done: 06/05/24 15:18
*Neglect/Abuse Screening Last Done: 06/05/24 15:18
*ED- Fall Risk Assessment Last Done: 06/05/24 15:18
*Nursing Disposition Last Done: 06/05/24 18:22
ED-Female Genitourinary Assessment Last Done: 06/05/24 15:38
Discharge Date and Time
Discharge Date/Time: 06/05/24 18:27
[2024-06-05 15:32] VITALS: BP 124/73
[2024-06-05 15:56] LABS: % Basophils 0.3 % (0-2); % Eosinophils 1.2 % (0-6); % Immature Granulocytes 2.6 % (0-0.5); % Lymphocytes 15.2 % (20.5-51.1); % Monocytes 4.7 % (1.7-9.3); Absolute Eosinophils 0.2 10^3/uL (0-0.7); Absolute Immature Granulocytes 0.4 10^3/uL (0-0.05); Absolute Lymphocytes 2.2 10^3/uL (1.2-3.4); Absolute Monocytes 0.7 10^3/uL (0.1-0.6); Absolute Neutrophils 11.2 10^3/uL (1.4-6.5); Hematocrit 31.3 % (37.0-47.0); Hemoglobin 10.3 g/dL (12.0-16.0); Mean Corp Hgb Conc. 32.9 g/dL (33.0-37.0); Mean Corpuscular Hgb 26.3 pg (27.0-31.0); Mean Corpuscular Volume 80.1 fL (81.0-99.0); Mean Platelet Volume 9.9 fL (7.4-10.4); Nucleated Red Blood Cells % 0 %; Platelet Count 238 10^3/uL (130-400); Red Blood Cell Count 3.91 10^6/uL (4.20-5.40); Red Cell Dist. Width 16.1 % (11.5-14.5); White Blood Cell Count 14.7 10^3/uL (4.8-10.8)
[2024-06-05 16:00] VITALS: BP 118/71
[2024-06-05 16:03] LABS: Urine Albumin Negative (Neg - Trace); Urine Bilirubin Negative (Negative); Urine Character Clear (Clear); Urine Color Yellow; Urine Glucose Negative (Negative); Urine Ketone Negative (Negative); Urine Leukocyte 2+ (Negative); Urine Nitrite Negative (Negative); Urine Occult Blood 2+ (Negative); Urine Urobilinogen Negative (Neg - 1+)
[2024-06-05 16:09] LABS: ALT (SGPT) 11 U/L (0-35); AST (SGOT) 14 U/L (14-36); Albumin 3.5 g/dl (3.5-5.0); Alkaline Phosphatase 99 U/L (38-126); Blood Urea Nitrogen 9 mg/dl (7-17); Calcium 9.8 mg/dl (8.4-10.2); Carbon Dioxide 22 mmol/L (22-30); Chloride 105 mmol/L (98-107); Estimated Creatinine Clearance > 125 ml/min; Glucose 78 mg/dl (70-99); Lipase 42 U/L (23-300); Sodium 135 mmol/L (135-145); Total Bilirubin 0.4 mg/dl (0.2-1.3); Total Protein 6.5 g/dl (6.3-8.2); eGFR > 60.00
[2024-06-05 16:11] LABS: Urine Bacteria Few (Negative); Urine Red Blood Cell 0-2 /HPF (0-2); Urine Squamous Cell 26-30 /LPF (Few)
[2024-06-05 16:19] LABS: Troponin I < 0.012 ng/ml
[2024-06-05 17:34] VITALS: BP 122/70
[2024-06-05 18:00] VITALS: BP 124/73
[2024-06-05 18:36] VITALS: BP 120/76
[2024-06-05 19:16] LABS: Protein/creatinine Ratio 0.1; Urine Protein 7 mg/dl
== END 2024-06-05 20:11 | disposition home or self-care (01) ==
LOC: LDRP 18:29
PROVIDERS: ADMITTING PHYSICIAN Student in an Organized Health Care Education/Training Program; EMERGENCY PHYSICIAN Emergency Medicine; FAMILY PHYSICIAN Obstetrics & Gynecology
DX: O99.891 Other specified diseases and conditions complicating pregnancy (principal); N13.39 Other hydronephrosis; R10.13 Epigastric pain; R10.11 Right upper quadrant pain; R06.02 Shortness of breath; R94.31 Abnormal electrocardiogram [ECG] [EKG]; R11.2 Nausea with vomiting, unspecified; O10.012 Pre-existing essential hypertension complicating pregnancy, second trimester; O99.282 Endocrine, nutritional and metabolic diseases complicating pregnancy, second trimester; E28.2 Polycystic ovarian syndrome; Z86.79 Personal history of other diseases of the circulatory system; Z82.49 Family history of ischemic heart disease and other diseases of the circulatory system; Z83.3 Family history of diabetes mellitus
CPT/HCPCS: 76700; 80053; 81003; 81015; 82570; 83690; 84156; 84484; 85025; 85379; 87086; 93005; 99285; G0378

== ENCOUNTER → 2024-06-21 14:19 | Outpatient (REF) | payer BC, SELFPAY | LOC: PNTC 14:19 | PROVIDERS: ATTENDING PHYSICIAN Student in an Organized Health Care Education/Training Program | DX: O99.210 Obesity complicating pregnancy, unspecified trimester (principal); O99.320 Drug use complicating pregnancy, unspecified trimester | CPT/HCPCS: 76816 ==

== ENCOUNTER 2024-06-27 14:44 | Observation (INO) | payer OTHER, SELFPAY ==
[2024-06-27 14:51] VITALS: BP 109/72; BMI 34.9
== END 2024-06-27 16:15 | disposition home or self-care (01) ==
LOC: LDRP 14:44
PROVIDERS: ADMITTING PHYSICIAN Obstetrics & Gynecology
DX: O47.03 False labor before 37 completed weeks of gestation, third trimester (principal); R10.9 Unspecified abdominal pain; O99.413 Diseases of the circulatory system complicating pregnancy, third trimester; I47.11 Inappropriate sinus tachycardia, so stated; Z3A.30 30 weeks gestation of pregnancy; O10.013 Pre-existing essential hypertension complicating pregnancy, third trimester
CPT/HCPCS: 59899; G0378

== ENCOUNTER 2024-07-23 16:47 | Observation (INO) | payer OTHER, SELFPAY ==
[2024-07-23 17:03] VITALS: BP 122/83; BMI 34.6
== END 2024-07-23 17:35 | disposition home or self-care (01) ==
LOC: LDRP 16:47
PROVIDERS: ADMITTING PHYSICIAN Obstetrics & Gynecology
DX: O36.8130 Decreased fetal movements, third trimester, not applicable or unspecified (principal); Z3A.33 33 weeks gestation of pregnancy; O99.413 Diseases of the circulatory system complicating pregnancy, third trimester; I47.11 Inappropriate sinus tachycardia, so stated
CPT/HCPCS: 59899; G0378

== ENCOUNTER 2024-08-29 05:26 | Inpatient (IN) | payer OTHER, SELFPAY ==
--- NOTE | 2024-08-26 15:20 | HPS.HSE ---
Family Physician
-
Family Physician: NO INTERVIEW UNKNOWN
Chief Complaint
-
History of Present Illness
HPI: Patient is a 28yo with an EDC of 09/04 who presents for scheduled elective primary section. She has a history of SVT and is worried about having a vaginal delivery. She has no complaints.
complications
- cHTN
- SVT, on metoprolol
- PCOS
- BMI 31.6
PMHx: cHTN, SVT, PCOS, obesity, asthma
Meds: Metoprolol 50mg BID, bASA, PNV
Surhgx: cardiac ablation
NKDA
Socialhx: denies tobacco, etoh or illicit drug use
Famhx: mom w/ HTN and DM, PGF w/ heart disease
labs: Blood type O+, Ab neg, HBsAg neg, HIV neg, GCCT neg, Rubella immune, Hep C neg, 1hr 149, 3hr wnl, GBS positive
Medical History
Past Medical History
Past Medical History: Reports HTN and Other
Past Surgical History: Reports Other
Social History
Tobacco: Non-smoker
Alcohol: None
Drug: None
Family History
Family History: Diabetes and Hypertension
Allergies / Home Medications
Allergies reflects when Allergies were last updated in [facility].
Home Medications with original date entered in [facility]
Allergy/Medication List:
Meds: metoprolol 50mg BID, PNV, bASA
NKDA
Review of Systems
-
A 12 point ROS was completed and negative except as noted: Yes
Physical Exam
Physical Exam
General: Well Developed and Well Nourished
HEENT: NormoCephalic
Respiratory: Non Labored Respirations
Cardiac: Regular Rhythm
Skin: Warm and Dry
Neuro: Awake
Psych: Calm
Impression/Plan
-
IMPRESSION:
Patient is a 28yo with an EDC of 09/04 who presents for elective primary section
PLAN:
- Patient aware this is an elective and her Assembly Operator was okay with her having a vaginal delivery. She was counseled extensively on the risks of a including bleeding, infection, damage to surrounding structures, need for
future operations and risks of multiple c-sections. She was consented for a blood transfusion if needed
- 2g of Ancef prior to incision
- Proceed with elective primary section
[2024-08-29 05:39] VITALS: BP 116/56; BMI 34.5
[2024-08-29 06:06] LABS: Hematocrit 33.6 % (37.0-47.0); Hemoglobin 10.9 g/dL (12.0-16.0); Mean Corp Hgb Conc. 32.4 g/dL (33.0-37.0); Mean Corpuscular Volume 79.6 fL (81.0-99.0); Platelet Count 223 10^3/uL (130-400); Red Cell Dist. Width 16.1 % (11.5-14.5)
[2024-08-29] MEDS: TYLENOL 975 MG PO (06:58)
[2024-08-29] MEDS: BICITRA 30 ML PO (06:58)
[2024-08-29] MEDS: ANCEF 10 IV (07:24)
--- NOTE | 2024-08-29 12:54 | OR.RPT ---
Operative Report
Operative Report
Procedure date: 08/29/2024
Preop diagnosis: IUP @39.1, SVT, cHTN, BMI 31.6, desires elective primary
Postop diagnosis: same
Surgeon: Thierry
Procedure: Elective primary low transverse section
Anesthesia: Spinal, Dr. Chaudhry
QBL: 750mL
Findings: Viable female infant born at 0801, Apgars 8/9, normal appearing bilateral fallopian tubes and ovaries, oozing from hysterotomy controlled with multiple figure of eights, TXA given, Surgicel placed over hysterotomy
Complications: none
Indication: Patient is a 28yo @39.1 weeks who presented to Labor and Delivery for scheduled elective primary section. She has a history of SVT and Cardiology did clear her for a vaginal delivery but patient desired elective primary
section. Patient was counseled on the risks of a section and that a vaginal delivery is the safest way to have a baby. Consents were previously signed in the office.
Procedure: Patient was taken to the operating room where spinal anesthesia was administered and found to be adequate. 2g of Ancef was given for antibiotic prophylaxis. The abdomen was prepped with ChloraPrep. The patient was draped in the normal
sterile fashion. She was placed in the dorsal supine position with a left lateral tilt. A Pfannenstiel incision was made with a 10 blade and carried down to the fascia with a scalpel. Hemostasis achieved with Bovie. The fascia was incised and
dissected laterally with Villafuerte scissors. The superior aspect of the fascia was grasped with Leticia clamps. The underlying rectus fascia was sharply dissected with Villafuerte scissors. In a similar fashion the inferior aspect of the fascia was elevated with
Leticia clamps and the rectus muscle was dissected off with Villafuerte scissors. The rectus muscles were down the midline to the level of the pubic symphysis with manual dissection. The peritoneum was bluntly entered and extended using manual
traction.
Grant retractor and bladder blade were placed revealing good visualization of the bladder. The vesicouterine peritoneum was identified. A thin lower uterine segment was noted. The lower uterine segment was incised with a scalpel. Amniotic sac
was artificially ruptured for clear fluid. The uterine incision was extended bluntly with lateral and upward traction.
The fetus was in cephalic presentation. The head was elevated out of the pelvis with special attention paid to avoid using the uterine incision as a fulcrum. Gentle fundal pressure was applied once the head was brought to the incision. The head
delivered through the hysterotomy. The rest of the delivered without difficulty. Delayed cord clamping was performed. The was handed off to the survey coordinator. IV oxytocin was started to facilitate uterine contractions. The placenta was
delivered with fundal massage and gentle downward traction. The uterus was exteriorized. Allis clamps were placed at the apices of the hysterotomy. The inside of the uterus was wiped with a lap sponge to assure complete removal of placental
membranes. Fundal massage was performed and uterus was firm. The uterine incision was closed with 0 Vicryl in a running locked fashion. A horizontal imbricating stitch was done on the hysterotomy with 0 Vicryl. There was oozing along the hysterotomy
and multiple figure of eights were placed with 0 Vicryl and 2-0 Vicryl to achieve hemostasis. There was still oozing from the hysterotomy and TXA was given. Another imbricating stitch was done on the hysterotomy. More figure of eights were placed
with 2-0 Vicryl to achieve hemostasis on the hysterotomy. The hysterotomy was inspected and noted to be hemostatic. The uterus was placed back in the abdomen. Blood clots and fluid were wiped out of the abdomen and pelvis with moist laparotomy
sponges. The hysterotomy was examined and was hemostatic. Surgicel was placed over the hysterotomy.
The rectus muscles and there was oozing from the left rectus muscle. A figure of eight was placed with 2-0 Chromic to achieve hemostasis. The fascial layer was closed in a running continuous fashion using 0 Vicryl. The subcutaneous tissue was
copiously irrigated and any small bleeding vessels were cauterized with Bovie cautery. The subcutaneous tissue was reapproximated in a running continuous fashion with 2-0 Plain. The skin was closed with 4-0 Vicryl in a subcuticular fashion and
covered with skin glue. The patient tolerated the procedure well. All sponge and instrument counts were correct times two. The patient was taken to the recovery room in stable condition. Stroud catheter was draining clear urine at the end of the
procedure.
[2024-08-29] MEDS: TORADOL 15 MG IV ×2 (15:17→20:29)
[2024-08-29] MEDS: COLACE 100 MG PO (20:29)
[2024-08-29] MEDS: LOPRESSOR 50 MG PO (20:29)
[2024-08-30] MEDS: TORADOL 15 MG IV ×2 (02:16→08:12)
[2024-08-30 04:48] LABS: Hematocrit 26.4 % (37.0-47.0); Hemoglobin 8.6 g/dL (12.0-16.0); Mean Corp Hgb Conc. 32.6 g/dL (33.0-37.0); Mean Corpuscular Volume 79.5 fL (81.0-99.0); Platelet Count 197 10^3/uL (130-400); Red Cell Dist. Width 16.0 % (11.5-14.5)
--- NOTE | 2024-08-30 07:48 | W.PN.ANS.POP ---
Anesthesia Post Operative
- Anesthesia Post Op Note
Vital Signs Stable-See Nursing Note: Yes
Airway Patent: Yes
Adequate Pain Control: Yes
Change in Mental Status: No
Current Postoperative Nausea & Vomiting: No
Anesthesia Complications: No
General Anesthetic Recall: No (n/a)
Unplanned Admission: No
Post Op Hydration Adequate: Yes
[2024-08-30] MEDS: COLACE 100 MG PO ×2 (08:11→20:21)
[2024-08-30] MEDS: LOPRESSOR 50 MG PO ×2 (08:11→20:21)
[2024-08-30] MEDS: FEOSOL 325 MG PO (10:51)
[2024-08-30] MEDS: PRENATAL PLUS 1 TABLET PO (10:51)
[2024-08-30] MEDS: ROXICODONE 5 MG PO ×2 (11:09→15:14)
[2024-08-30 15:21] LABS: Syphilis/T. pallidum Ab Reflex Negative (Negative)
[2024-08-30] MEDS: ROXICODONE 10 MG PO (20:20)
[2024-08-30] MEDS: MOTRIN 600 MG PO (23:20)
[2024-08-31] MEDS: ROXICODONE 10 MG PO (01:10)
[2024-08-31] MEDS: LOPRESSOR 50 MG PO ×2 (08:39→19:40)
[2024-08-31] MEDS: COLACE 100 MG PO ×2 (08:39→19:41)
[2024-08-31] MEDS: FEOSOL 325 MG PO (08:39)
[2024-08-31] MEDS: ROXICODONE 5 MG PO ×2 (08:39→13:05)
[2024-08-31] MEDS: PRENATAL PLUS 1 TABLET PO (08:39)
[2024-08-31 09:42] LABS: Hematocrit 28.5 % (37.0-47.0); Hemoglobin 9.1 g/dL (12.0-16.0); Mean Corp Hgb Conc. 31.9 g/dL (33.0-37.0); Mean Corpuscular Volume 81.7 fL (81.0-99.0); Nucleated Red Blood Cells % 0 %; Platelet Count 212 10^3/uL (130-400); Red Cell Dist. Width 16.7 % (11.5-14.5)
[2024-08-31 09:56] LABS: ALT (SGPT) 13 U/L (0-35); AST (SGOT) 20 U/L (14-36); Albumin 3.0 g/dl (3.5-5.0); Alkaline Phosphatase 110 U/L (38-126); Blood Urea Nitrogen 12 mg/dl (7-17); Calcium 8.6 mg/dl (8.4-10.2); Carbon Dioxide 23 mmol/L (22-30); Chloride 110 mmol/L (98-107); Estimated Creatinine Clearance > 125 ml/min; Glucose 95 mg/dl (70-99); Potassium 3.6 mmol/L (3.5-5.1); Sodium 137 mmol/L (135-145); Total Protein 5.6 g/dl (6.3-8.2); eGFR > 60.00
--- NOTE | 2024-08-31 10:19 | CON.CAR ---
Addendum entered and electronically signed by Guy Marvin MD 08/31/24 17:36:
I saw and examined the patient.
The FIELD SERVICE CONSULTANT's note was reviewed and I agree with the note.
Comment: Cont metop, recent echo reportedly normal OK to hold off, EKG sinus tach, monitor on tele
Original Note:
Consultation
Consultation Request
Date/Time Consultation Requested: 08/31/24 0831
Date/Time Consultation Performed: 08/31/24 1020
Requesting Provider: Dr. Marti
Performing Provider: Heaven MOLINA for Dr. Marvin
Reason for Consultation: palpitations
Medical History
-
Chief Complaint: patient presented for scheduled
History of Present Illness:
28 y/o female with hx SVT s/p ablation 2018 (Administrative Professional is at [facility]- Dr. Ayon). Post-procedure SVT did not come back, but patient reports that due to sinus tachycardia, she was placed on metoprolol 25 mg PO BID, which was increased to 50 BID
during . She is s/p 08/29/24 and had a baby girl. Her s/o is at bedside. She is in no distress at the time of my assessment. We are consulted for palpitations that started last night with associated SOB. She was having worsening
incisional pain, so she was wondering if that could have caused her increased palps. They are improved, but not resolved now. She is in no distress at the time of my assessment. Her EKG shows ST.
Past Medical History
Past Medical History: Arrhythmias (SVTSVT s/p ablation, sinus tachycardia)
Social History
Tobacco: Non-Smoker
Alcohol: None
Family History
Family History: CAD (grandfather sounds to have had CAD- details unclear)
Allergies / Home Medications
Allergy/AdvReac Type Severity Reaction Status Date / Time
No Known Allergies Allergy Verified 08/29/24 05:38
�Medication �Instructions �Recorded �Confirmed �Type
aspirin 81 mg tablet 81 mg PO DAILY Blood Clot 06/05/24 08/29/24 History
Prevention/Tx
metoprolol tartrate 50 mg tablet 50 mg PO BID Arrhythmia 06/05/24 08/29/24 History
[id number] 1 mg 1 tab PO DAILY Supplement 06/05/24 08/29/24 History
tablet
Review of Systems
-
History Source: Patient
All other systems: Negative unless noted
Respiratory: Trouble Breathing
Cardiac: Palpitations
Physical Exam
Vital Signs
Temp Pulse Resp BP
98.1 F 115 18 123/76
08/29/24 05:39 08/31/24 08:39 08/29/24 05:39 08/31/24 08:39
Lab Results
08/31/24 09:30
08/31/24 09:30
Physical Exam
General: Well Developed, Well Nourished and No Apparent Distress
HEENT: Normocephalic and Anicteric
Respiratory: Clear and Non Labored Respirations
Cardiac: Regular Rhythm (ST)
Musculoskeletal: No Edema
Skin: Warm and Dry
Neuro: AO x 3
Psych: Calm
Impression / Plan
-
s/p :
-management per NURSE ORTHOPAEDIC
Palpitations:
-were worse when she was having more post-op pain. EKG shows ST.
-would monitor on telemetry and check echo, TSH
-continue metoprolol
Hx pSVT:
-hx ablation
-she tells me she has been on metoprolol for sinus tachycardia and that SVT has not recurred post-ablation
-continue metoprolol
Data Reviewed
-
EKG: Tracing Personally Visualized and interpreted (ST at 107 BPM- similar to previous)
Medical Tests (Nuc Med, Echo etc): Report Reviewed by me (echo 03/12/20: Normal biventricular size and systolic function without regional wall motion abnormality. No significant valvular disease. ) and Other (holter 03/14/20: Sinus rhythm with an
average heart rate of of 79 bpm (range 56-169 bpm). Tachycardic burden of 8%. Several symptoms, but no symptomatic correlation as the patient was in sinus rhythm with no significant ectopy during those times.)
Labs: Labs Reviewed by me
--- NOTE | 2024-08-31 15:40 | PTCARENOTE ---
Went over to place pt on tele monitor shortly after noon. Pt only c/o chest pressure mid sternum. Did not radiate. Reports she had recently received her metoprolol. On tele pack, pt was SR 90-100. Signal briefly worked in ICU, but by the time I
returned to ICU, no tele signal. [employer] was called and tele pack was working, not seeing pt after adjustments made to tele pack itself. Tele pack was reading weak signal and only intermittently transmitting to ICU. [employer] aware and reports pt was
to far back in unit to transmit a signal. Waiting in unit to make sure there was no delay in transmitting signal. Upon return from ambulating to bathroom, pt reported pressure was gone. Pt initially refused to move rooms closer to station for a
better signal. Heaven Gonzalez aware wanted pt to be on tele. While updated pt's nurse Kanu, Dr Marti said she was ordering ct scan which pt agreed to. Went back to room to discuss with pt and she agreed to change rooms after ct scan. Pt
was moved to room 210 and is getting a consistent signal. Rhythm 90-120, ST.
[2024-08-31] MEDS: MOTRIN 600 MG PO (19:39)
[2024-08-31] MEDS: TYLENOL 650 MG PO (19:40)
--- NOTE | 2024-08-31 19:42 | PTCARENOTE ---
Monitoring patient's telemetry remotely from ICU, currently SR 90s on monitor, LA 0.16, QRS 0.08, QT 0.32. Strip printed.
--- NOTE | 2024-08-31 20:45 | PTCARENOTE ---
Addendum entered by Janessa Norris RN 08/31/24 20:51:
During assessment pt denied any chest pain, palpitations or other cardiac symptoms.
Original Note:
Went over to do focused assessment on patient at around 2034, remains SR 80s on monitor, S1, S2 heart sounds heard, lungs clear and diminished throughout on room air.
[2024-09-01] MEDS: TYLENOL 650 MG PO ×2 (03:48→07:47)
[2024-09-01] MEDS: MOTRIN 600 MG PO ×2 (03:48→07:48)
[2024-09-01] MEDS: PRENATAL PLUS 1 TABLET PO (07:48)
[2024-09-01] MEDS: FEOSOL 325 MG PO (07:49)
[2024-09-01] MEDS: COLACE 100 MG PO (07:49)
[2024-09-01] MEDS: LOPRESSOR 50 MG PO (07:49)
--- NOTE | 2024-09-01 08:55 | PTCARENOTE ---
pt nsr on monitor, assessment s1s2 heart sounds, lungs clear. pt denies sob, chest pain and palpitations.
--- NOTE | 2024-09-01 10:30 | PTCARENOTE ---
pt hr in 120s-150s, pt oob to bathroom asymptomatic per Eula SOLORIO and Rasheeda SOLORIO.
--- NOTE | 2024-09-01 10:41 | PTCARENOTE ---
Pt back to bed HR 108, pt asymptomatic. Spoke with Chrissy from ICU HR reported to back to her.
--- NOTE | 2024-09-01 12:02 | W.PN.UPDATE ---
Update Note
Progress Note Update
Patient comfortable with no complaints. Telemetry reviewed no significant arrhythmias. Sinus rhythm and sinus tachycardia. Fastest heart rates of sinus tachycardia correlate with time periods when patient was in the bathroom and was having some
postoperative pain. Continue current dosing of metoprolol. No additional changes in medical therapy recommended at this time. Overall appears stable from a cardiology standpoint. Issues reviewed with OB
--- NOTE | 2024-09-01 12:05 | W.PN.CD ---
Today's Communication / Plan
-
-continue usual metoprolol and follow-up with usual aircraft cleaner after d/c
-TSH elevated, but free T4 WNL- should follow-up with PCP as OP
Impression / Plan
-
s/p :
-management per CONSULTING APPLICATION ENGINEER
Palpitations: improved
-were worse when she was having more post-op pain.
-EKG ST, telemetry SR/ST. No concerning arrhythmias.
-patient declined echo here, citing she had a normal one about 1 month ago
-continue metoprolol
-follow-up with usual aircraft cleaner after d/c
-TSH elevated, but free T4 within normal limits- should follow-up with PCP on this as OP
Hx pSVT:
-hx ablation
-she tells me she has been on metoprolol for sinus tachycardia and that SVT has not recurred post-ablation
-continue metoprolol
Physical Exam
Vital Signs/Labs
Vital Signs
Temp Pulse Resp BP
98.1 F 92 18 122/81
08/29/24 05:39 09/01/24 07:49 08/29/24 05:39 09/01/24 07:49
08/31/24 09:30
08/31/24 09:30
Free T4 1.13 ng/dl (0.78-2.19) 08/31/24 09:30
Physical Exam
Constitutional: No acute distress
EENT: Anicteric
Cardiovascular: Rhythm & rate is regular
Respiratory: Respiratory effort normal and Lungs clear to auscul.
Neuro/Psych: AO x 3
Data Reviewed
-
Date of Service: September 01, 2024
EKG: Other (SR/ST)
Labs: Labs Reviewed by me
== END 2024-09-01 13:46 | disposition home or self-care (01) | DRG 787 ==
LOC: LDRP 05:26
PROVIDERS: Obstetrics & Gynecology; ADMITTING PHYSICIAN Student in an Organized Health Care Education/Training Program; CONSULT PHYSICIAN Internal Medicine Cardiovascular Disease
PROC: 10D00Z1 Extraction of Products of Conception, Low, Open Approach (ICD-10-PCS; 2024-08-29)
DX: O99.42 Diseases of the circulatory system complicating childbirth (principal); I47.10 Supraventricular tachycardia, unspecified; O10.92 Unspecified pre-existing hypertension complicating childbirth; O99.824 Streptococcus B carrier state complicating childbirth; Z3A.39 39 weeks gestation of pregnancy; Z37.0 Single live birth; O99.214 Obesity complicating childbirth; O99.284 Endocrine, nutritional and metabolic diseases complicating childbirth; E28.2 Polycystic ovarian syndrome; J45.909 Unspecified asthma, uncomplicated; O99.52 Diseases of the respiratory system complicating childbirth; R00.2 Palpitations; Z82.49 Family history of ischemic heart disease and other diseases of the circulatory system; Z83.3 Family history of diabetes mellitus; Z79.82 Long term (current) use of aspirin
CPT/HCPCS: 36415; 71275; 80053; 84439; 84443; 85025; 85027; 86780; 86850; 86900; 86901; 93005; Q9967

== ENCOUNTER 2025-02-02 23:09 | Emergency (ER) | payer OTHER, SELFPAY ==
[2025-02-02 23:11] VITALS: BP 142/87
[2025-02-02 23:15] VITALS: BP 142/87
[2025-02-02 23:32] LABS: Hematocrit 32.0 % (37.0-47.0); Hemoglobin 10.3 g/dL (12.0-16.0); Mean Corp Hgb Conc. 32.2 g/dL (33.0-37.0); Mean Corpuscular Volume 74.8 fL (81.0-99.0); Nucleated Red Blood Cells % 0 %; Platelet Count 319 10^3/uL (130-400); Red Cell Dist. Width 14.1 % (11.5-14.5)
[2025-02-03] VITALS: BP 150/103
[2025-02-03 00:07] LABS: ALT (SGPT) 21 U/L (0-35); AST (SGOT) 21 U/L (14-36); Albumin 4.3 g/dl (3.5-5.0); Alkaline Phosphatase 99 U/L (38-126); Blood Urea Nitrogen 16 mg/dl (7-17); Calcium 9.4 mg/dl (8.4-10.2); Carbon Dioxide 27 mmol/L (22-30); Chloride 102 mmol/L (98-107); Estimated Creatinine Clearance 125 ml/min; Glucose 84 mg/dl (70-99); Potassium 3.8 mmol/L (3.5-5.1); Sodium 135 mmol/L (135-145); Total Protein 7.2 g/dl (6.3-8.2); eGFR > 60.00
[2025-02-03] MEDS: NSS 1000 IV (00:35)
[2025-02-03] MEDS: REGLAN 10 MG IV (00:36)
[2025-02-03] MEDS: BENADRYL 25 MG IV (00:36)
[2025-02-03] MEDS: DECADRON 10 MG IV (00:36)
[2025-02-03] MEDS: TORADOL 15 MG IV (00:36)
[2025-02-03 01:00] VITALS: BP 123/96
[2025-02-03 01:14] LABS: INR 1.03; PT 13.3 Sec (11.4-14.6)
[2025-02-03 01:15] LABS: APTT 35.1 Sec (23.4-35.0)
[2025-02-03 01:50] LABS: HCG, Serum Qualitative Screen Negative
[2025-02-03 02:00] VITALS: BP 113/77
[2025-02-03 03:34] VITALS: BP 135/93
[2025-02-03 04:00] VITALS: BP 137/90
--- NOTE | 2025-02-03 04:25 | ED.GENMED ---
History of Present Illness
General
Chief Complaint: Headache
Source: patient
Exam Limitations: none
Time Seen by Provider: 02/03/25 00:09
Nursing documentation reviewed up to this point in time: agreed with
History of Present Illness
History of Present Illness:
Note:
CHIEF COMPLAINT(S)
Severe headache with onset this morning, radiating from the ears to the back of the head and jaw.
HISTORY OF PRESENT ILLNESS
The patient is a 29-year-old female who presented with a chief complaint of a severe headache that began this morning. She describes the pain as radiating from her ears to the back of her head and jaw. She took acetaminophen (Tylenol) without
relief. The patient reports this is the worst headache she has ever experienced, noting that her usual headaches are relieved within an hour by acetaminophen. She denies experiencing fever or nausea accompanying this headache.
The plan discussed includes performing a computed tomography (CT) scan and considering a lumbar puncture to rule out meningitis or intracranial hemorrhage. The patient expressed reluctance to undergo a lumbar puncture due to a previous negative
experience with epidural anesthesia during a section.
PAST MEDICAL AND SURGICAL HISTORY
The patient has a history of a section performed in 2018.
ADDITIONAL HISTORY OBTAINED FROM SOURCES OTHER THAN THE PATIENT
Her spouse is present and is part of the decision-making discussions.
CHRONIC MEDICAL CONDITIONS SIGNIFICANTLY AFFECTING CARE
The patient reports having sinus tachycardia for which she takes metoprolol.
ALLERGIES
The patient denies any allergies.
SOCIAL HISTORY
The patient denies smoking, excessive alcohol consumption, and drug use.
MEDICATIONS
The patient currently takes metoprolol for sinus tachycardia.
REVIEW OF SYSTEMS
- Neurological: Reports severe headache, which is the worst she has ever experienced.
- Cardiovascular: Reports history of sinus tachycardia.
- Obstetric/Gynecological: Currently menstruating.
PHYSICAL EXAM
General: Alert, no acute distress.
Skin: Warm, dry.
Head: Normocephalic, atraumatic.
Neck: Supple, trachea midline.
Eyes: Pupils are equal and reactive to light.
Cardiovascular: Normal peripheral perfusion, no edema.
Respiratory: Respirations are non-labored.
Gastrointestinal: Abdomen nondistended.
Back: Normal range of motion, normal alignment.
Musculoskeletal: Normal range of motion, normal strength.
Neurological: Alert and oriented to person, place, time, and situation. No focal neurological deficit observed.
Psychiatric: Cooperative, appropriate mood and affect.
PROBLEM LIST
Acute Problems:
1. Severe headache, new onset, worst in life.
2. Concerns for possible meningitis or intracranial hemorrhage.
Chronic Problems:
1. Sinus tachycardia.
PLAN
1. Perform a CT scan to assess for potential intracranial pathology.
2. Administer a headache cocktail for pain relief.
3. Discuss with the patient the potential need for a lumbar puncture based on CT scan results.
4. Monitor patient�s response to treatment and revisit the decision for a lumbar puncture after further discussion and consultation with the patient and her spouse.
DIFFERENTIAL DIAGNOSIS
The differential diagnosis includes, in no particular order and is not limited to:
1. Subarachnoid hemorrhage
2. Migraine headache
3. Meningitis
4. Tension headache
5. Sinusitis
6. Brain tumor
7. Pseudotumor cerebri
8. Temporal arteritis
9. Cluster headache
10. Cerebral venous sinus thrombosis
CARE-UPDATE
02/03/25 - 00:40
Patient refuses lumbar puncture despite understanding the risks and possible misdiagnosis. supports this decision. Patient cited a previous bad experience. Decision-making capabilities intact. No lumbar puncture to be performed.
CARE-UPDATE
02/03/25 - 01:34
The patient is stable, exhibiting no signs of distress. No immediate changes to the current treatment plan are necessary. Continue to monitor for any new symptoms or changes in status.
Disposition:
SUMMARY OF ENCOUNTER
The patient presented to the emergency department with a severe headache, described as the worst she had ever experienced. Management included the administration of a headache cocktail, after which her headache resolved. A CT angiogram was performed
and was negative, thereby reducing the likelihood of serious intracranial pathology. The patient declined a lumbar puncture after understanding the risks and possible misdiagnosis associated with not having the procedure.
DISPOSITION
Discharge
ASSESSMENT
The patient showed significant improvement following treatment, and the resolved headache and negative CT angiogram indicated a low likelihood of a serious condition.
EMERGENCY TREATMENTS ADMINISTERED
A headache cocktail was administered.
PLAN
Discharge the patient with advice on headache management and instructions to seek further medical evaluation if symptoms recur or worsen.
INDEPENDENT REVIEW OF LABS AND INTERPRETATION OF TESTS
My independent interpretation of the CT angiogram is negative for any significant findings.
MEDICATION RECONCILIATION
The patient received a headache cocktail during the visit. No new medications prescribed upon discharge.
MEDICAL DECISION MAKING
-Complexity of Data Reviewed: Chronic conditions affecting care include sinus tachycardia. Differential diagnosis considered includes subarachnoid hemorrhage, migraine headache, meningitis, tension headache, sinusitis, brain tumor, pseudotumor
cerebri, temporal arteritis, cluster headache, cerebral venous sinus thrombosis.
Category 1: CT angiogram was ordered and independently reviewed, confirming negative results for significant intracranial pathology.
Category 2: Input from the patients spouse contributed to the decision-making process regarding the refusal of lumbar puncture.
DIAGNOSIS
Migraine [ICD-10: G43.909]
Past History
Past History
ED Past Medical History: Arrthythmia (SVT), Other (Palpitations, irregular menses), Other (Anemia) and Other (Migraine headaches.)
ED Past Surgical History: Cardiac (SVT ablation 2018)
Social History
Tobacco: Non-smoker
Alcohol: None
Drug: None
Personal: Single
Living: with family
Employment: Student
Family History
Family History: Other (Noncontributory)
Course
Orders/Labs/Results
Orders:
Orders
02/02/25 23:25
CMP [Comprehensive Metabolic Panel] Urgent
Complete Blood Count/With Diff Urgent
HCG, Serum Qualitative Screen Urgent
Comment: ADD ON
02/03/25 00:29
0.9% Sodium Chloride 1000 ml [Nss] 1,000 ml IV BOLUS
Dexamethasone Sod Phosphate [Decadron] 10 mg IV NOW STA
Diphenhydramine [Benadryl] 25 mg IV NOW STA
Ketorolac [Toradol] 15 mg IV NOW STA
Metoclopramide [Reglan] 10 mg IV NOW STA
02/03/25 00:34
Erythrocyte Sed Rate Urgent
PTT Urgent
Prothrombin Time Urgent
02/03/25 00:59
Add On- LAB Urgent
Tests Added?: serum hcg
02/03/25 01:13
CT Head & Neck Angio W/wo IV Urgent
Comment:
Reason For Exam: headache
Abnormal Lab Results
02/02/25 02/03/25
23:25 00:34
Hgb 10.3 L g/dL
(12.0-16.0)
Hct 32.0 L %
(37.0-47.0)
MCV 74.8 L fL
(81.0-99.0)
MCH 24.1 L pg
(27.0-31.0)
MCHC 32.2 L g/dL
(33.0-37.0)
APTT 35.1 H Sec
(23.4-35.0)
02/02/25 23:25
02/02/25 23:25
Vital Signs
Initial and Last Documented VS:
Initial Vital Signs
Temp Pulse Resp BP Pulse Ox
97.5 F 64 15 142/87 100
02/02/25 23:11 02/02/25 23:11 02/02/25 23:11 02/02/25 23:11 02/02/25 23:11
Last Documented Vital Signs
Temp Pulse Resp BP Pulse Ox
97.5 F 81 20 135/93 98
02/02/25 23:11 02/03/25 03:34 02/03/25 03:34 02/03/25 03:34 02/03/25 03:34
*Pulse Oximetry
SaO2: 98
Oxygen Mode of Delivery: Room air
Update Note
Update Note:
NAME: JENIFFER TYLER
DATE OF EXAM: 02/03/2025
Patient No: [id number]
Physician: KEVYN^Torsten
Date of : 1995
Past Medical History (entered by Technologist):
Reason For Exam (entered by Technologist):
Other Notes (entered by Technologist): pt with migraine presents with migraine
unable to remove necklace, pt states can not come off
Additional Information (per Vision Radiologist):
CT HEAD WITHOUT CONTRAST
CT ANGIOGRAM HEAD WITH CONTRAST
CT ANGIOGRAM NECK WITH CONTRAST
COMPARISON: None
IMPRESSION:
CT HEAD:
No acute intracranial hemorrhage.
No evidence of early acute infarct. No hyperdense vessel sign.
No mass effect or midline shift.
Ventricles are normal without hydrocephalus.
Visualized paranasal sinuses and mastoids are clear.
No calvarial lesion.
CT ANGIOGRAM:
The common and cervical internal carotid arteries are patent. The cervical vertebral arteries are patent.
Anterior circulation vessels are patent. Posterior circulation vessels are patent.
No proximal intracranial large vessel occlusion.
No aneurysm or vascular lesion.
No neck soft tissue abnormality.
Visualized lung apices are clear.
Case finalized on 02/03/25 04:21 EDT
Waldo Schreiber M.D.
ED Attending Note
-
Portions of this chart may have been created with voice recognition software.� Occasional wrong word or��sound alike� substitutions may have occurred due to the inherent limitations of voice recognition software.
Discharge Plan
Departure
Patient Disposition: Home (Routine Discharge)
Date of Disposition: 02/03/25
Time of Disposition: 04:28
Patient with high blood pressure during this ER visit?: Yes
Discharge Problem:
Migraine
Instructions: Headache, Adult (DC), Migraines (DC)
Prescriptions:
No Action
[id number] 1 mg Tablet
1 tab PO DAILY
metoprolol tartrate 50 mg Tablet
50 mg PO BID
acetaminophen 325 mg Tablet
650 mg PO Q4HPRN PRN (Reason: mild pain) Qty: 0 0RF
ferrous sulfate [FeroSul] 325 mg (65 mg iron) Tablet
325 mg PO DAILY Qty: 0 0RF
docusate sodium 100 mg Capsule
100 mg PO BID Qty: 0 0RF
ibuprofen 600 mg Tablet
600 mg PO Q6HPRN PRN (Reason: cramps) Qty: 45 0RF
oxycodone 5 mg Tablet
5 mg PO Q4HPRN PRN (Reason: moderate pain) Qty: 7 0RF
Referrals:
NONE,* [Family Provider, Internal Medicine]
Helen Christensen MD [Non-Admitting Privileges, Psychiatry]
Activity Restrictions/Additional Instructions:
Thank You for choosing [facility].
It was a pleasure meeting you and taking part in your care. We hope for your continued healing and wellness.
Please read discharge instructions in their entirety. However, they are for general education and may not describe your exact diagnosis at discharge. Information on your ER visit and medical conditions were discussed with you along with appropriate
follow up information...
If indicated, please take your medications as instructed and indicated on discharge paperwork.
Please schedule a follow up appointment as directed. Call to schedule an appointment
Please return to the emergency department with ANY change in, persisting, or worsening of symptoms. If any of your symptoms do not improve, or persist, or become more severe within 6-12 hours, please return to the emergency department for further
care.
Please return to the emergency department if you develop a headache, neck pain/stiffness, fever greater than 100.4F, chest pain, shortness of breath, persistent nausea, vomiting, slurred speech, difficulty walking, numbness/tingling, weakness, signs
of infection or any other symptoms that are worrisome to you.
If you have any questions or concerns please do not hesitate to call the Hospital at .
Interventions
Interventions:
*General Assessment Last Done: 02/02/25 23:16
*Neglect/Abuse Screening Last Done: 02/02/25 23:17
*ED COVID-19 Vaccine History Last Done: 02/02/25 23:16
*ED Influenza Vaccine History Last Done: 02/02/25 23:16
[facility] Risk Assessment Tool Last Done: 02/02/25 23:19
*Risk Screen - Suicide (C-SSRS) Last Done: 02/02/25 23:16
ED- Neurological Assessment Last Done: 02/02/25 23:17
Discharge Date and Time
Print Language: UKRAINIAN
== END 2025-02-03 04:45 | disposition home or self-care (01) ==
LOC: EMR 23:09
PROVIDERS: EMERGENCY PHYSICIAN Student in an Organized Health Care Education/Training Program
DX: G43.909 Migraine, unspecified, not intractable, without status migrainosus (principal); R03.0 Elevated blood-pressure reading, without diagnosis of hypertension; R00.0 Tachycardia, unspecified
CPT/HCPCS: 99284; 96374; 96375 ×3; 96361 ×2; 70496; 70498; 80053; 84703; 85025; 85610; 85652; 85730; Q9967